=== PATIENT | male | born 1960 | race Caucasian/White ===

== ENCOUNTER 2022-07-04 08:59 | Outpatient (REF) | payer OTHER, SELFPAY ==
[2022-07-04 11:12] LABS: MANUAL DIFF FLAG NO
[2022-07-04 11:39] LABS: Basophils Absolute Auto 0.1 X10*3/uL (0.0-0.2); Basophils Percent Auto 0.8 % (0-2); Eosinophils Absolute Auto 0.2 X10*3/uL (0.0-0.4); Eosinophils Percent Auto 2.1 % (0-4); Hemoglobin 15.6 g/dl (14.0-18.0); Imm Gran Abs Auto 0.02 X10*3/uL (0.00-0.03); Imm Gran Pct Auto 0.3 % (0.0-0.4); Lymphocytes Absolute Auto 2.2 X10*3/uL (1.2-4.9); Lymphocytes Percent Auto 27.6 % (20-40); Mean Corpuscular HGB Conc 34.7 g/dl (31.0-36.0); Mean Corpuscular Hemoglobin 30.9 pg (27.0-33.0); Mean Corpuscular Volume 89.1 fL (80.0-98.0); Mean Platelet Volume 10.2 fL (9.4-12.4); Monocytes Absolute Auto 0.7 X10*3/uL (0.1-1.2); Monocytes Percent Auto 8.8 % (2-11); Neutrophils Absolute Auto 4.8 x10*3/uL (2.0-8.3); Neutrophils Percent Auto 60.4 % (45-73); Platelet Count 305 X10*3/uL (160-400); Red Blood Count 5.05 X10*6/uL (4.60-5.80); Red Cell Distribution Width 12.4 % (11.0-16.0); White Blood Count 7.9 X10*3/uL (4.8-10.8)
[2022-07-04 12:18] LABS: Alanine Aminotransferase 33 U/L (0-40); Albumin Level 4.4 g/dL (3.5-5.0); Alkaline Phosphatase 94 U/L (39-117); Anion Gap 16 (12-20); Aspartate Amino Transferase 25 U/L (5-37); Bilirubin Total 0.9 mg/dL (0.0-1.0); Blood Urea Nitrogen 13 mg/dL (9-16); Calcium 9.6 mg/dL (8.4-10.2); Carbon Dioxide 24 mmol/L (22-29); Chloride 106 mmol/L (96-108); Cholesterol 182 mg/dL; Estimated Glomerular Filt Rate > 60; Glucose Fasting 107 mg/dL (60-99); HDL Cholesterol 48 mg/dL; LDL Cholesterol Calculated 120 mg/dl; Potassium 4.7 mmol/L (3.3-5.1); Sodium 141 mmol/L (135-145); Total Protein 7.2 g/dL (6.5-8.0); Triglycerides 73 mg/dL
[2022-07-04 12:43] LABS: Prostate Specific Antigen Scr 0.45 ng/mL (<0.05-4.0); TSH reflex Free T4 0.88 uIU/mL (0.32-4.0)
== END 2022-07-04 09:00 | disposition home or self-care (01) ==
LOC: HO.WFDLDS 08:59
PROVIDERS: Visit Provider Family Medicine
DX: Z00.00 Encounter for general adult medical examination without abnormal findings (principal); Z12.5 Encounter for screening for malignant neoplasm of prostate
CPT/HCPCS: 36415; 80053; 80061; 84153; 84443; 85025

== ENCOUNTER 2022-07-07 10:41 | Outpatient (REF) | payer OTHER, SELFPAY ==
[2022-07-07 13:59] LABS: Appearance Urine Clear; Color Urine Yellow; Glucose Urine UA Negative (Negative); Leukocyte Esterase Urine Negative (Negative); Nitrite Urine Negative (Negative); Urine Blood Negative (Negative); Urine Ketones Negative (Negative); Urine Protein Negative (Neg-Trace)
[2022-07-07 15:05] LABS: Creatinine Urine 60.53 mg/dL; Microalbumin Urine < 5.0 mg/L
== END 2022-07-07 10:42 | disposition home or self-care (01) ==
LOC: HO.WFDLNP 10:41
PROVIDERS: Visit Provider Family Medicine
DX: I10 Essential (primary) hypertension (principal)
CPT/HCPCS: 81003; 82043

== ENCOUNTER 2022-12-15 11:00 | Outpatient (RCR) | payer OTHER, SELFPAY ==
--- NOTE | 2022-12-09 15:08 | MHC.PT.EP ---
[facility] [place] [facility] [place] [facility] [place] Office [address] Nelli Nicole [address] [phone] F: [phone] F: [phone] F: [phone] F: [phone] Physical Therapy Plan of Care Date of Evaluation: Date of Surgery: Diagnosis: PT eval and treat; M25.512 Pain in L shoulder by Dr. Martin Vieyra date of referral 11/20/22 Assessment: Pt is a RHD retired 62 y/o male (PMH significant for history of borderline pre-DM, history of L shoulder dislocation, and history abdominal hernia repair), referred to PT for treatment of L shoulder pain following onset of sx which began over six months ago insidious onset. Pt exhibits signs and sx which are concerning for a RTC supraspinatus compromise including poor AROM abduction>flexion>IR>ER, decreased strength and pain with MMT, and altered glenohumeral mechanics with compensatory upper trap shrug. Pt expressing history of L shoulder dislocation over forty years ago, previous occupation which involved repetitive lifting/ carrying tasks in which sx suddenly awoke one day with inability to lift his L UE aprroximately six months ago. Pt exhibits decreased ROM, impaired strength, and poor functional mobility tolerance for dressing, driving, and lifting/reaching of the left extremity. Pt expressing near constant deep pain in the shoulder impacting his ability to sleep whch keeps him awake at night. Pt would benefit from referral to orthopedics and likely benefit from MRI imaging should patient not showcase improvement with therapy. Pt reports other issue of HNP lumbar which he states impacts his ability for driving, sitting. Pt expresses self care including use of inversion table which aides his back sx. Pt was educated in the benefit/goals of PT at this time as well as findings of evaluation, and anatomy of shoulder. Pt reports no history of recent PT for his back- reports history of previous work injury impacting his 2-5 R metatarsals with (+) altered sensation and parathesias. Frequency and Duration: The patient will be seen 2x/week x 4 weeks Short Term Goals: 1. Initiate self care strategies for L shoulder. 2. Initiate AAROM L shoulder flexion to 130 degrees. 3. AAROM L shoulder abduction to 120 degrees. 4. AAROM IR midline L5 region. 5. Improve SPADI score by 25%. Group Home Goals: 1. I HEP with self care. 2. Increase strength scapular stabilizers 01/16. 3. Demonstrate strength L shoulder extensors 01/16. 4. Demonstrate strength L shoulder ER 01/16. 5. AAROM>AROM L shoulder flexion to 130 degrees. 6. AAROM>AROM L shoulder abduction to 120 degrees. Treatment Plan: Modalities to reduce pain, spasms and effusion. Manual therapy to restore motion and function. Therapeutic exercise to improve strength and flexibility. Neuromuscular re-education for posture and balance. Therapeutic activities to return to functional activities of daily living. Electronically signed by: Chloe Boss PT, DPT Please sign and return to therapist. Thank you for your referral.
== END 2023-10-13 12:08 | disposition home or self-care (01) ==
LOC: HO.PTWFD 11:00
PROVIDERS: PCP Hospitalist; Visit Provider Family Medicine
DX: M25.512 Pain in left shoulder (principal)
CPT/HCPCS: 97014; 97110; 97140; 97162

== ENCOUNTER → 2022-12-23 14:28 | Outpatient (BNVA) | payer OTHER, SELFPAY | PROVIDERS: PCP Family Medicine; Visit Provider Physician Assistant | DX: Z12.11 Encounter for screening for malignant neoplasm of colon (principal) | CPT/HCPCS: 99202 ==

== ENCOUNTER 2025-06-22 11:52 | Outpatient (AMB) | payer MEDICARE, SELFPAY ==
--- NOTE | 2025-06-22 11:54 | MHC.PC.OV ---
Vital Signs 06/22/25 11:57 Height 5 ft 7 in Weight 187 lb 4 oz BMI 29.3 BP 142/89 H Blood Pressure Location Lt brachial Position Sitting Respiration 14 Pulse 54 Pulse Source Pulse Oximeter Temp 97.2 F Temp Source Temporal Artery Scan Pulse Oximetry (%) 99 Oxygen Delivery Method Room Air Intake Visit Reasons: Annual PE - see comments Intake Note: CPE. 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: No Allergies No Known Allergies Allergy (Verified 06/22/25 11:55) Medication List - Last Reconciled 06/22/25 by Martin Vieyra MD aripiprazole (Abilify) 2 mg PO BEDTIME 30 days bisacodyl (Dulcolax (bisacodyl)) 10 mg (2 x 5 mg) PO ONCE 1 day polyethylene glycol 3350 (Miralax) 238 grams PO ONCE PRN 1 day Tobacco use date assessed: 06/22/25 Fall risk assessment: No Falls in past year Last assessed Fall Risk: 06/22/25 Dental Screening Dental Screen Date: 06/22/25 Did you have a dental visit in the last 12 months?: Yes Did you have a dental problem in the last 6 months where you did not have access to dental care?: No Was dental information given to patient?: Patient has dentist HPI Annual PE - see comments HPI Details 64 y/o male presents for a CPE with f/u labs and health maint. No recent labs to review. Last cologuard test done in March. He is up to date. Hx of bipolar, depression. Pt notes he is not taking any medications. He notes he currently feels okay without his meds. HPI Comments History of Present Illness Details Documentation assistance for Martin Vieyra MD, was provided by Audie Kirkpatrick,? Physician General Internal Medicine on 06/22/2025 at 12:18 PM EST. I, Dr. Vieyra, have read, observed, and verified documentation. ?? [facility] Social History Housing: House Patient Tobacco Use Status: Never used Tobacco e-Cigarette/Vaping Use: Never Used Second Hand Smoke Exposure: No service: No Current occupational status: retired Current occupational exposures/hazards: No Cognitive needs: No Hearing needs: No Vision needs: No Questionnaire PHQ-9 Over the last 2 weeks, how often have you been bothered by any of the following problems? 1. Little interest or pleasure in doing things: not at all 2. Feeling down, depressed, or hopeless: nearly every day 3. Trouble falling or staying asleep, or sleeping too much: nearly every day 4. Feeling tired or having little energy: several days 5. Poor appetite or overeating: not at all 6. Feeling bad about yourself - or that you are a failure or have let yourself or your family down: not at all 7. Trouble concentrating on things, such as reading the newspaper or watching television: not at all 8. Moving or speaking so slowly that other people could have noticed. Or the opposite - being so fidgety or restless that you have been moving around a lot more than usual: not at all 9. Thoughts that you would be better off or of hurting yourself in some way: not at all Total score: 7 Depression Screening Interpretation: Positive Depression Screening Done: Yes 36675 - PHQ-9 Billing: Yes Source: Developed by Drs. Brandyn Marin, Magaly Durbin, Konstantin Mosquera and colleagues, with an educational alexander from [employer]. Thrive Questionnaire Date Thrive assessed: 06/22/25 I am a: Patient What is your living situation today?: I have a steady place to live Within the past 12 months, did the food you bought not last and you didn't have the money to get more?: Never true Within the past 12 months, did you worry whether your food would run out before you got money to buy more?: Never true Do you have trouble paying for medicines?: I choose not to answer this question Do you have trouble getting transportation to medical appointments?: No Do you have trouble paying your heating and electricity bill?: No Do you have trouble taking care of your child, family member or friend?: No Do you have trouble with day-to-day activities such as bathing, preparing meals, shopping, managing finances, etc.?: No Are you currently unemployed and looking for a job?: No Are you interested in more education?: No Please select the resources that you would like help with: None Currently or been in a relationship where the following occur: No concerns reported THRIVE Score: 0 AUDIT C Alcohol Use Questionnaire (AUDIT-C) 1. How often do you have a drink containing alcohol?: Never Total Score: 0 ABI-7 AMB Questionnaire ABI-7 Date ABI - 7 assessed: 06/22/25 Feeling nervous, anxious, or on edge: 0 = Not at all Not being able to stop or control worryin = Not at all Worrying too much about different things: 1 = Several days Trouble relaxin = Several days Being so restless that it is hard to sit still: 1 = Several days Becoming easily annoyed or irritable: 1 = Several days Feeling afraid as if something awful might happen: 0 = Not at all Total ABI-7 score (0-4 normal; 5-9 mild; 10-14 moderate; 15-21 severe): 4 Source: Developed by Drs. Brandyn Marin, Magaly Durbin, Konstantin Mosquera and colleagues, with an educational alexander from [employer]. ABI-7 Assessment Billing ABI-7 Assessment Tool: ABI-7 Assessment 57060 Review of Systems Const Denies chills, Denies fatigue, Denies fever(s), Denies headache(s) and Denies weakness Eyes Denies change in vision ENT Denies dizziness, Denies headache(s), Denies hearing loss, Denies nasal congestion, Denies sinus pain, Denies sinus pressure and Denies sore throat Card Denies chest pain, Denies lightheadedness, Denies dyspnea and Denies other (palpitations) Resp Denies cough, Denies dyspnea and Denies wheezing GI Denies abdominal pain, Denies melena, Denies hematochezia, Denies change in bowel habits, Denies dyspepsia and Denies nausea Denies hematuria and Denies dysuria Musc Denies abnormal gait, Denies myalgias, Denies arthralgias, Denies numbness and Denies tingling Skin/Breast Denies rash, Denies unusual bruising and Denies wounds Neuro Denies abnormal gait, Denies dizziness, Denies headache(s), Denies memory loss, Denies numbness, Denies Sensory deficit (Neuro), Denies tingling and Denies weakness Psych Denies anxiety, Reports depression and Denies memory loss Endo Denies cold intolerance, Denies fatigue, Denies heat intolerance, Denies polydipsia and Denies polyuria Lukas/Lymph Denies easy bleeding and Denies easy bruising Aller/Immun Denies wheezing Physical exam (Primary Care) Vital Signs: Last Vital Signs Temp 97.2 F 06/22/25 11:57 Pulse 54 06/22/25 11:57 Resp 14 06/22/25 11:57 BP 142/89 H 06/22/25 11:57 Pulse Ox 99 06/22/25 11:57 Oxygen Delivery Method Room Air 06/22/25 11:57 BMI result Body Mass Index 29.3 Tobacco/Smoking Status: Tobacco use Status Tobacco use date assessed 06/22/25 06/22/25 11:59 Patient Tobacco Use Status Never used Tobacco 06/22/25 11:59 e-Cigarette/Vaping Use Never Used 06/22/25 11:59 PHQ-9: PHQ-9 Score PHQ-9: Total score 7 06/22/25 12:04 Depression Screening Interpretation: Positive Thrive Assessment: Date of Thrive Assessment Date Thrive assessed 06/22/25 06/22/25 11:59 Currently or been in a relationship where the following occur: No concerns reported Const General: no acute distress, well developed, alert and awake Nutritional Appearance: well nourished Orientation/consciousness: patient oriented x3 HENMT Head: Yes normocephalic and Yes atraumatic Ears: hearing grossly normal bilaterally and TM's normal bilaterally General nose exam: Normal external nose present and Normal nares present Mouth: Normal oral and palatal mucosa present and moist mucous membranes Teeth and gingiva: dentition normal Throat: Yes posterior oropharynx normal Eyes General: appearance normal, both eyes and all related structures Pupils: Equal, round and reactive pupils present and Pupil accommodation reflex normal EOM: EOMs intact bilaterally Neck Neck: Yes normal visual inspection, Yes no lymphadenopathy and Yes trachea midline Thyroid: Thyroid normal Carotids: no bruits Lymphatic: no lymphadenopathy noted Chest Chest palpation & inspection: normal inspection of the chest Resp Effort & Inspection: normal respiratory effort Auscultation: clear to auscultation bilaterally Cardio Rate: regular rate Rhythm: regular rhythm Heart sounds: S1 normal heart sound present, S2 normal heart sound present, no gallops, no murmurs and no rubs Bruits: no abdominal aortic bruits and no carotid bruits GI Palpation (GI): No Abdominal aortic bruit present, Soft to palpation, nontender, No hepatosplenomegaly present and No Rebound tenderness present Auscultation: normal bowel sounds General: Yes no CVA tenderness Back/Spine/Pelvis Back: no CVA tenderness Cervical Spine: cervical ROM normal and No Cervical spine tenderness Thoracic/Lumbar Spine: thoraco-lumbar ROM normal, No pain with thoraco-lumbar ROM, No thoracic spinal tenderness and No lumbar spinal tenderness Skin Lesions: no lesions Rashes: no rashes Trauma: no lacerations or abrasions Wounds: no wounds Nails: normal Neuro General: patient oriented x3 Cranial nerves: Yes Equal, round and reactive pupils present Cognition (Neuro): normal cognition Gait exam (Neuro): Normal gait present Motor exam (neuro): 5/5 motor strength present throughout Sensory Exam: No Sensory deficit (Neuro) Deep tendon reflexes (DTR's): Right patellar reflex intensity grade: 2+ and Left patellar reflex intensity grade: 2+ Extrem General: Yes normal to inspection and No edema Psych Appearance: grossly normal Affect: normal affect Attitude: cooperative Thought process: Normal thought process present Immunizations Boostrix Tdap 2.5 Lf unit-8 mcg-5 Lf/0.5 mL intramuscular syringe Performing Provider: Martin Vieyra MD Performing Location: [facility] Administered by: Trudy Mendez MA on 06/22/25 12:26 Dose Route Admin Location Dispensed Lot Number Expiration Date [facility] [employer] Targeting Supervisor 0.5 mL IM Left Deltoid 0.5 mL [id number] 08/11/27 [id number] [id number] Total Dispensed Waste 0.5 mL 0 % VIS Given Date VIS Provided VIS Publication Date 06/22/25 Single Vaccine 21 Eligibility Eligibility Date Funding Source Not [facility] Eligible 06/22/25 Private Coding Level of Care Code Est Pt Level 3 (12321) Est Pt Prev Care >65y(91670) Diagnoses Adult general medical exam Z00.00 Bipolar disorder F31.9 Depression F32.A Screening for colon cancer Z12.11 Screening for prostate cancer Z12.5 Immunization counseling Z71.85 Additional Codes ABI-7 Assessment Billing - ABI-7 Assessment Tool: ABI-7 Assessment 97577 ([id number]) PHQ-9 - 02822 - PHQ-9 Billing: Yes ([id number]) Assessment & Plan Assessment & Plan (1) Adult general medical exam: Code(s): Z00.00 - Encounter for general adult medical examination without abnormal findings Category: Medical Plan: 64-year-old male presents for complete physical exam EKG performed today: Sinus bradycardia; 53 beats per minute, normal axis, no hypertrophy, no ST-T-wave changes. Exam WNL Encouraged healthy diet with active lifestyle and plenty of exercise (2) Bipolar disorder: Code(s): F31.9 - Bipolar disorder, unspecified Category: Medical Plan: History of bipolar disorder. He had been on Abilify and had a psych med provider in the past. He says he has discontinued these medications I recommended he watch carefully for signs of peter or depression - reviewed these If he notices signs these, he will contact his psych med provider (3) Depression: Code(s): F32.A - Depression, unspecified Category: Medical Plan: As above (4) Screening for colon cancer: Code(s): Z12.11 - Encounter for screening for malignant neoplasm of colon Category: Medical Plan: Patient had Cologuard test performed in March 2025 Negative Up-to-date and will rescreen in 3 years (5) Screening for prostate cancer: Code(s): Z12.5 - Encounter for screening for malignant neoplasm of prostate Category: Medical Plan: PSA is ordered (6) Immunization counseling: Code(s): Z71.85 - Encounter for immunization safety counseling Category: Medical Plan: Patient is 64 No recent tetanus shot-ordered and he can get this today. He plans to get his flu shot soon and I recommended the high-dose flu shot He says he is up-to-date with his COVID shot He should discuss pneumonia shot with his pharmacist He can also consider RSV and shingles shot as well. Orders: Orders UA CC w/rflx Micro + Cult Today Z00.00 - Encounter for general adult medical examination without abnormal findings Comprehensive [place]. Panel Fast Today Z00.00 - Encounter for general adult medical examination without abnormal findings Complete Blood Count Auto Diff Today Z00.00 - Encounter for general adult medical examination without abnormal findings Lipid Panel Today Z00.00 - Encounter for general adult medical examination without abnormal findings Microalbumin, Random (w Creat) Today I10 - Essential (primary) hypertension Prostate Specific Antigen Scr Today Z12.5 - Encounter for screening for malignant neoplasm of prostate TSH reflex Free T4 Today Z00.00 - Encounter for general adult medical examination without abnormal findings Hemoglobin A1c Today R73.01 - Impaired fasting glucose TDaP Immunization Today Z23 - Encounter for immunization Medications: Discontinued aripiprazole (Abilify) Discontinued Reason: Doctor's Order 2 mg PO BEDTIME 30 days 90 tabs 2RF bisacodyl (Dulcolax (bisacodyl)) Take 2 tablets by mouth at 12:00pm the day before your procedure. Discontinued Reason: Duplicate 10 mg (2 x 5 mg) PO ONCE 1 day 2 tabs 0RF colonoscopy prep Z12.11 - Encounter for screening for malignant neoplasm of colon polyethylene glycol 3350 (Miralax) Take as directed by mouth the day before your procedure. Discontinued Reason: Doctor's Order 238 grams PO ONCE 1 day PRN 238 grams 0RF laxative effect
[2025-06-22 11:57] VITALS: BP 142/89; PULSE 54; RESP 14; TEMP 36.2; O2SAT 99; BMI 29.3
== END 2025-06-22 12:27 | disposition home or self-care (01) ==
LOC: HO.HMCFM 11:53
PROVIDERS: PCP Family Medicine; Visit Provider Family Medicine
DX: Z00.00 Encounter for general adult medical examination without abnormal findings (principal); F31.9 Bipolar disorder, unspecified; F32.A Depression, unspecified; Z12.11 Encounter for screening for malignant neoplasm of colon; Z12.5 Encounter for screening for malignant neoplasm of prostate; Z71.85 Encounter for immunization safety counseling; Z23 Encounter for immunization

== ENCOUNTER → 2025-06-22 11:52 | Outpatient (BNVA) | payer MEDICARE, SELFPAY | PROVIDERS: PCP Family Medicine; Visit Provider Family Medicine | DX: Z00.00 Encounter for general adult medical examination without abnormal findings (principal); F31.9 Bipolar disorder, unspecified; I10 Essential (primary) hypertension; R73.01 Impaired fasting glucose; Z23 Encounter for immunization; Z71.85 Encounter for immunization safety counseling | CPT/HCPCS: 90471; 90715; 93005; 96127; 99397 ==

== ENCOUNTER 2025-06-23 09:48 | Outpatient (REF) | payer MEDICARE, SELFPAY ==
--- OUTSIDE RECORDS SUMMARY | 2025-06-23 10:33 | XMS_ITS | Clinical Summary ---
Author Organization [facility] Address [address] [place] [address] Care Team Providers Care Dynamometer Repairer Name Role Phone Unavailable Primary Care Provider Unavailabl e Social History Tobacco Use Types Packs/Day Years Used Date Smoking Tobacco: Never Assessed Sex and Gender Information Value Date Recorded Sex Assigned at Not on file Gender Identity Not on file Sexual Orientation Not on file Plan of Treatment Not on file
[2025-06-23 11:00] LABS: MANUAL DIFF FLAG NO
[2025-06-23 11:16] LABS: Hematocrit 44.6 % (42.0-52.0); Hemoglobin 15.1 g/dl (14.0-18.0); Imm Gran Abs Auto 0.01 X10*3/uL (0.00-0.03); Imm Gran Pct Auto 0.1 % (0.0-0.4); Lymphocytes Absolute Auto 1.9 X10*3/uL (1.2-4.9); Mean Corpuscular HGB Conc 33.9 g/dl (31.0-36.0); Mean Corpuscular Hemoglobin 30.3 pg (27.0-33.0); Mean Corpuscular Volume 89.4 fL (80.0-98.0); NRBC Abs Auto 0.000 X10*3/uL (0.0-0.012); NRBC Pct Auto 0.0 /100WBC (0.0-0.2); Platelet Count 256 X10*3/uL (160-400); Red Blood Count 4.99 X10*6/uL (4.60-5.80); White Blood Count 7.3 X10*3/uL (4.8-10.8)
[2025-06-23 11:19] LABS: Appearance Urine Clear; Glucose Urine UA Negative (Negative); PH 7.0 (5.0-9.0); Specific Gravity - Urine 1.010 (1.005-1.025)
[2025-06-23 12:07] LABS: Alanine Aminotransferase 27 U/L (0-40); Albumin Level 4.2 g/dL (3.5-5.0); Alkaline Phosphatase 89 U/L (39-117); Anion Gap 10 (12-20); Aspartate Amino Transferase 22 U/L (5-37); Blood Urea Nitrogen 13 mg/dL (9-16); Calcium 9.2 mg/dL (8.4-10.2); Carbon Dioxide 28 mmol/L (22-29); Chloride 107 mmol/L (96-108); Cholesterol 188 mg/dL (<200); Estimated Glomerular Filt Rate > 60; HDL Cholesterol 43 mg/dL (>40); Potassium 4.1 mmol/L (3.3-5.1); Sodium 141 mmol/L (135-145); Total Protein 6.8 g/dL (6.5-8.0); Triglycerides 105 mg/dL (<150)
== END 2025-06-23 09:49 | disposition home or self-care (01) ==
LOC: HO.WFDLDS 09:48
PROVIDERS: Visit Provider Family Medicine
DX: Z00.00 Encounter for general adult medical examination without abnormal findings (principal); Z12.5 Encounter for screening for malignant neoplasm of prostate; I10 Essential (primary) hypertension; R73.01 Impaired fasting glucose
CPT/HCPCS: 36415; 80053; 80061; 81003; 82570; 83036; 84153; 84443; 85025

== ENCOUNTER 2025-07-31 09:36 | Outpatient (AMB) | payer MEDICARE, SELFPAY ==
--- NOTE | 2025-07-31 08:59 | MHC.PC.OV ---
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 Labs drawn 06/23/25. Reviewed labs with pt. Fasting glucose 103. A1c 5.5%. Triglycerides 105. TC 188. LDL 124. HDL 43. PSA 0.38. PFSH Social History Housing: House Patient Tobacco Use Status: Never used Tobacco e-Cigarette/Vaping Use: Never Used Second Hand Smoke Exposure: No service: No Current occupational status: retired Current occupational exposures/hazards: No Cognitive needs: No Hearing needs: No Vision needs: No Questionnaire Thrive Questionnaire Date Thrive assessed: 06/22/25 I am a: Patient What is your living situation today?: I have a steady place to live Within the past 12 months, did the food you bought not last and you didn't have the money to get more?: Never true Within the past 12 months, did you worry whether your food would run out before you got money to buy more?: Never true Do you have trouble paying for medicines?: I choose not to answer this question Do you have trouble getting transportation to medical appointments?: No Do you have trouble paying your heating and electricity bill?: No Do you have trouble taking care of your child, family member or friend?: No Do you have trouble with day-to-day activities such as bathing, preparing meals, shopping, managing finances, etc.?: No Are you currently unemployed and looking for a job?: No Are you interested in more education?: No Please select the resources that you would like help with: None Currently or been in a relationship where the following occur: No concerns reported THRIVE Score: 0 AUDIT C Alcohol Use Questionnaire (AUDIT-C) 3. How often do you have six or more drinks on one occasion?: Never Total Score: 0 ABI-7 AMB Questionnaire ABI-7 Date ABI - 7 assessed: 06/22/25 Source: Developed by Drs. Brandyn Marin, Magaly Durbin, Konstantin Mosquera and colleagues, with an educational alexander from [employer]. Review of Systems Const Denies chills, Denies fatigue, Denies fever(s), Denies headache(s) and Denies weakness ENT Denies dizziness and Denies headache(s) Card Denies dyspnea Resp Denies cough, Denies dyspnea, Denies wheezing and Denies other (shortness of breath) Musc Denies numbness and Denies tingling Neuro Denies dizziness, Denies headache(s), Denies numbness, Denies tingling and Denies weakness Psych Denies anxiety and Denies depression Endo Denies fatigue Aller/Immun Denies wheezing Physical exam (Primary Care) Tobacco/Smoking Status: Tobacco use Status Tobacco use date assessed 06/22/25 07/31/25 09:00 Patient Tobacco Use Status Never used Tobacco 07/31/25 09:00 e-Cigarette/Vaping Use Never Used 07/31/25 09:00 Thrive Assessment: Date of Thrive Assessment Date Thrive assessed 06/22/25 07/31/25 09:00 Currently or been in a relationship where the following occur: No concerns reported Telehealth Telehealth Telehealth Platform: Telephone Location of provider rendering services: practice address Location of patient: address on file Patient Identification confirmed using: Name, : Yes Telehealth method: voice only Patient verbally consented to treatment: Yes Patient verbally consented to billing insurance company: Yes Patient informed of any privacy concerns related to visit: Yes Minutes spent on Phone/Video with Pt.: 5 Coding Level of Care Code Tele Est Pt Level 2 (24776) Diagnoses Elevated fasting glucose R73.01 Hypercholesteremia E78.00 Screening for prostate cancer Z12.5 Assessment & Plan Assessment & Plan (1) Elevated fasting glucose: Code(s): R73.01 - Impaired fasting glucose Category: Medical Plan: A1c is within normal range Who fasting blood sugars are mildly elevated Encouraged a diet lower sugars and starches Will continue to monitor (2) Hypercholesteremia: Code(s): E78.00 - Pure hypercholesterolemia, unspecified Category: Medical Plan: LDL cholesterol is elevated Encouraged a diet lower in saturated fats and cholesterol Will continue to monitor We discussed that if cholesterol continues to rise we may want to discuss a medication (3) Screening for prostate cancer: Code(s): Z12.5 - Encounter for screening for malignant neoplasm of prostate Category: Medical Plan: PSA is within normal range Will continue annual screening Orders: Orders TSH reflex Free T4 Today Z00.00 - Encounter for general adult medical examination without abnormal findings UA CC w/rflx Micro + Cult Today Z00.00 - Encounter for general adult medical examination without abnormal findings Hemoglobin A1c Today R73.01 - Impaired fasting glucose Comprehensive [place]. Panel Fast Today Z00.00 - Encounter for general adult medical examination without abnormal findings Complete Blood Count Auto Diff Today Z00.00 - Encounter for general adult medical examination without abnormal findings Lipid Panel Today Z00.00 - Encounter for general adult medical examination without abnormal findings Microalbumin, Random (w Creat) Today I10 - Essential (primary) hypertension Prostate Specific Antigen Scr Today Z12.5 - Encounter for screening for malignant neoplasm of prostate
== END 2025-07-31 17:05 | disposition home or self-care (01) ==
LOC: HO.HMCFM 09:36
PROVIDERS: PCP Family Medicine; Visit Provider Family Medicine
DX: R73.01 Impaired fasting glucose (principal); E78.00 Pure hypercholesterolemia, unspecified; Z12.5 Encounter for screening for malignant neoplasm of prostate